=== PATIENT | male | born 1970 ===

== ENCOUNTER 2025-01-27 00:01 | Emergency (ER) | payer SELFPAY ==
[2025-01-27] MEDS: methylPREDNISolone Sodium Succinate 40 MG/1 ML SDV IM ONE (00:12)
== END 2025-01-27 00:47 | disposition home or self-care (01) ==
LOC: MW.ED 00:01
DX: L50.0 Allergic urticaria (principal)
CPT/HCPCS: 96372; 99282; A9270; J2919; 99284